=== PATIENT | male | born 1955 | race Caucasian/White ===

== ENCOUNTER 2017-11-29 01:06 | Emergency (ER) | payer BC ==
[2017-11-29] MEDS ORDERED: NS 1,000 ML IV ONE (01:20)
[2017-11-29] MEDS ORDERED: ONDANSETRON 4 MG/2 ML VIAL IVP ONE (01:20)
[2017-11-29] MEDS ORDERED: HYDROmorphONE/DILAUDID 1 MG/ML INJ IVP ONE (01:20)
--- NOTE | 2017-11-29 01:20 | EDPHY ---
H & P Stated Complaint: rigth side flank pain HPI/ROS: HPI CHIEF COMPLAINT: Right flank pain HISTORY OF PRESENT ILLNESS: Patient is a very pleasant 62-year-old male, presents emergency room with right flank pain. 08/25 pain. This started abruptly at 10:00 p.m. tonight. The symptoms have progressed with nausea vomiting and ongoing severe right flank pain. Describes the pain as sharp stabbing right CVA radiating to his right lower abdomen into his right testicle. He has associated nausea with multiple episodes of vomiting with this. Denies urinary symptoms. No history of kidney disease. Past Medical History: Hyperlipidemia Past Surgical History: No significant surgical history Social History: Denies daily use drugs alcohol tobacco products. Resides locally. [employer]apping Machine Operator. Family History: Noncontributory ROS REVIEW OF SYSTEMS: A comprehensive 10 point review of systems is otherwise negative aside from elements mentioned in the history of present illness. Exam Constitutional appears uncomfortable, holding right-sided triage nursing summary reviewed, vital signs reviewed, awake/alert. Eyes normal conjunctivae and sclera, EOMI, PERRLA. HENT normal inspection, atraumatic, moist mucus membranes, no epistaxis, neck supple/ no meningismus, no raccoon eyes. Respiratory clear to auscultation bilaterally, normal breath sounds, no respiratory distress, no wheezing. Cardiovascular rate normal, regular rhythm, no murmur, no edema, distal pulses normal. Gastrointestinal soft, non-tender, no rebound, no guarding, normal bowel sounds, no distension, no pulsatile mass. Genitourinary tender to palpation right CVA. Musculoskeletal no midline vertebral tenderness, full range of motion, no calf swelling, no tenderness of extremities, no meningismus, good pulses, neurovascularly intact. Skin pink, warm, & dry, no rash, skin atraumatic. Neurologic awake, alert and oriented x 3, AAOx3, moves all 4 extremities equally, motor intact, sensory intact, CN II-XII intact, normal cerebellar, normal vision, normal speech. Psychiatric normal mood/affect. Heme/Lymph/Immune no lymphadenopathy. Differential diagnosis includes but is not limited to and in no particular order : Kidney stone, hydroureter, hydronephrosis Bowel obstruction, appendicitis, gallbladder disease, diverticulitis, colitis, enteritis, perforated viscus, gastritis, GERD, esophagitis, urinary tract infection, pyelonephritis, kidney stones Medical Decision Making: Plan for this patient IV established with IV fluid bolus, 1 mg IV Dilaudid for pain control 4 mg IV Zofran for nausea, CT scan abdomen pelvis without contrast for flank pain. Check urinalysis basic blood work. Re-evaluate. Re-evaluation: CT scan abdomen pelvis without IV contrast for flank pain shows right mm stone entering the bladder. With moderate hydronephrosis on the right side. 0220: Re-evaluation at this time: Patient resting comfortably no acute distress. Pain well controlled. CT scan reviewed. Shows right hydronephrosis and hydroureter 1 mm stone that is in the bladder. Patient go home on Zofran, Girdwood and Flomax. Encouraged to drink lots of fluids. Follow up with Urology as needed. Urine strainer provided. Return if worsening symptoms he understands. Source: Patient - Medical/Surgical History Hx Asthma: No Hx Chronic Respiratory Disease: No Hx Diabetes: No Hx Cardiac Disease: No Hx Renal Disease: No Hx Cirrhosis: No Hx Alcoholism: No Hx HIV/AIDS: No Hx Splenectomy or Spleen Trauma: No - Social History Smoking Status: Never smoked Constitutional: Initial Vital Signs Temperature (C) 36.4 C 11/29/17 01:14 Heart Rate 69 11/29/17 01:14 Respiratory Rate 20 11/29/17 01:14 Blood Pressure 153/89 H 11/29/17 01:14 O2 Sat (%) 99 11/29/17 01:14 O2 (L/minute) 2 Allergies/Adverse Reactions: shrimp Allergy (Verified 11/29/17 01:13) LOBSTER Allergy (Uncoded 11/29/17 01:13) Home Medications: Medication Instructions Recorded Hydrocodone/APAP 5/325 [Girdwood 1 - 2 tab PO Q4H PRN #10 tab 11/29/17 5/325] Ondansetron HCl [Zofran] 4 mg PO Q4-6PRN PRN #10 tablet 11/29/17 Tamsulosin HCl [Flomax] 0.4 mg PO DAILY #10 cap 11/29/17 Medical Decision Making - Data Points Laboratory Results: Laboratory Results 11/29/17 01:25 11/29/17 01:25 11/29/17 11/29/17 11/29/17 01:25 01:25 01:20 WBC 8.94 10^3/uL 10^3/uL (3.80-9.50) RBC 4.65 10^6/uL 10^6/uL (4.40-6.38) Hgb 14.7 g/dL g/dL (13.7-17.5) Hct 41.5 % % (40.0-51.0) MCV 89.2 fL fL (81.5-99.8) MCH 31.6 pg pg (27.9-34.1) MCHC 35.4 g/dL g/dL (32.4-36.7) RDW 13.5 % % (11.5-15.2) Plt Count 155 10^3/uL 10^3/uL (150-400) MPV 9.4 fL fL (8.7-11.7) Neut % (Auto) 71.5 % % (39.3-74.2) Lymph % (Auto) 20.2 % % (15.0-45.0) [place] % (Auto) 7.6 % % (4.5-13.0) Eos % (Auto) 0.2 % L % (0.6-7.6) Baso % (Auto) 0.2 % L % (0.3-1.7) Nucleat RBC Rel Count 0.0 % % (0.0-0.2) Absolute Neuts (auto) 6.38 10^3/uL 10^3/uL (1.70-6.50) Absolute Lymphs (auto) 1.81 10^3/uL 10^3/uL (1.00-3.00) Absolute Monos (auto) 0.68 10^3/uL 10^3/uL (0.30-0.80) Absolute Eos (auto) 0.02 10^3/uL L 10^3/uL (0.03-0.40) Absolute Basos (auto) 0.02 10^3/uL 10^3/uL (0.02-0.10) Absolute Nucleated RBC 0.00 10^3/uL 10^3/uL (0-0.01) Immature Gran % 0.3 % % (0.0-1.1) Immature Gran # 0.03 10^3/uL 10^3/uL (0.00-0.10) Sodium 143 mEq/L mEq/L (135-145) Potassium 3.7 mEq/L mEq/L (3.5-5.2) Chloride 106 mEq/L mEq/L (97-110) Carbon Dioxide 23 mEq/l mEq/l (22-31) Anion Gap 14 mEq/L mEq/L (8-16) BUN 26 mg/dL H mg/dL (7-23) Creatinine 1.2 mg/dL mg/dL (0.7-1.3) Estimated GFR > 60 Glucose 121 mg/dL H mg/dL (70-100) Calcium 9.5 mg/dL mg/dL (8.5-10.4) Total Bilirubin 1.1 mg/dL mg/dL (0.1-1.4) Conjugated Bilirubin 0.3 mg/dL mg/dL (0.0-0.5) Unconjugated Bilirubin 0.8 mg/dL mg/dL (0.0-1.1) AST 35 IU/L IU/L (17-59) ALT 49 IU/L IU/L (21-72) Alkaline Phosphatase 77 IU/L IU/L (38-126) Total Protein 6.9 g/dL g/dL (6.3-8.2) Albumin 4.1 g/dL g/dL (3.5-5.0) Lipase 111 IU/L IU/L (23-300) Urine Color YELLOW Urine Appearance CLEAR Urine pH 8.0 H (5.0-7.5) Ur Specific [place] 1.014 (1.002-1.030) Urine Protein NEGATIVE (NEGATIVE) Urine Ketones TRACE H (NEGATIVE) Urine Blood NEGATIVE (NEGATIVE) Urine Nitrate NEGATIVE (NEGATIVE) Urine Bilirubin NEGATIVE (NEGATIVE) Urine Urobilinogen NEGATIVE EU EU (0.2-1.0) Ur Leukocyte Esterase NEGATIVE (NEGATIVE) Urine Glucose NEGATIVE (NEGATIVE) Medications Given: Discontinued Medications Hydromorphone HCl (Dilaudid) 1 mg IVP EDNOW ONE Stop: 11/29/17 01:21 Last Admin: 11/29/17 01:32 Dose: 1 mg Sodium Chloride (Ns) 1,000 mls @ 0 mls/hr IV EDNOW ONE; Wide Open PRN Reason: Protocol Stop: 11/29/17 01:21 Last Admin: 11/29/17 01:32 Dose: 1,000 mls Ketorolac Tromethamine (Toradol) 15 mg IVP EDNOW ONE Stop: 11/29/17 01:56 Last Admin: 11/29/17 01:57 Dose: 15 mg Ondansetron HCl (Zofran) 4 mg IVP EDNOW ONE Stop: 11/29/17 01:21 Last Admin: 11/29/17 01:32 Dose: 4 mg Departure - Departure Disposition: Home, Routine, Self-Care Clinical Impression: Kidney stone on right side Condition: Good Instructions: Kidney Stones (ED) Additional Instructions: 1. Drink lots of fluids stay well-hydrated. 2. Return emergency room if you have worsening symptoms questions or concerns. 3. Follow up with Urology. Referrals: Rogerio Rosario MD [Primary Care Provider] - As per Instructions Ramakrishna Painting MD [Medical Doctor] - As per Instructions Prescriptions: Hydrocodone/APAP 5/325 [Girdwood 5/325] 1 - 2 tab PO Q4H PRN #10 tab PRN Reason: Pain, Moderate Ondansetron HCl [Zofran] 4 mg PO Q4-6PRN PRN #10 tablet PRN Reason: Nausea/Vomiting, Use 1st Tamsulosin HCl [Flomax] 0.4 mg PO DAILY #10 cap
[2017-11-29 01:33] LABS: PLATELET COUNT 155 10^3/uL (150-400)
[2017-11-29] MEDS ORDERED: KETOROLAC 15 MG/1 ML SDV IVP ONE (01:55)
[2017-11-29 02:50] VITALS: BP 117/85; PULSE 74; RESP 16; TEMP 98.2; O2SAT 98
== END 2017-11-29 02:48 | disposition home or self-care (01) ==
DX: N20.0 Calculus of kidney (principal); E86.9 Volume depletion, unspecified
CPT/HCPCS: 96374; J1170; J1885; J2405

== ENCOUNTER → 2019-03-18 | Outpatient (CLI) | payer BC | LOC: BMCIMAGING 09:13 | PROVIDERS: ATTEND Internal Medicine | DX: I80.01 Phlebitis and thrombophlebitis of superficial vessels of right lower extremity (principal) ==